=== PATIENT | female | born 1955 | race Caucasian/White ===

== ENCOUNTER → 2017-04-21 | Outpatient (CLI) | payer BC ==
--- NOTE | 2017-04-21 17:15 | PCVCIMAG ---
APPROVED REPORT Exam: Stress Echocardiogram Indication: bradycardia,cva Patient Location: Echo lab Stress Nurse: Katy Mina RN Status: routine HR: 62 bpm Rhythm: NSR Medical History Medical History: Hyperlipidemia,cva Cardiac Risk Factors: Hyperlipidemia, FHX of CAD Exercise History: Indeterminate Procedure The patient underwent an Exercise Stress Test using the Matt Protocol. Blood pressure, heart rate, and EKG were monitored. An Echocardiogram was performed by coordinate measuring machine technician in four stages in quad fashion. At peak stress, four selected images were obtained and placed side by side with resting images for comparison. Stress Test Details Stress Test: Exercise stress testing was performed using a Matt protocol. HR Resting HR: 62 bpmMax Heart Rate (APMHR): 158 bpm Max HR Achieved: 160 bpmTarget HR (85% APMHR): 134 bpm % of APMHR: 101 Recovery HR: 95 bpm HR response to stress: Normal HR response to stress BP Resting BP: 144/90 mmHg Max BP: 180/78 mmHg Recovery BP: 140/70 mmHg ECG Resting ECG: Sinus Rhythm Stress ECG: Sinus Rhythm ST Change: Normal Maximum ST Deviation: 0.55 mm Arrhythmia: Rare PACs Recovery ECG: Sinus Rhythm Recovery ST Change: Non-ischemic Recovery Arrhythmia: None Clinical Reason for Termination: Maximal effort Stress Symptoms: none Exercise duration: 8 min sec Highest Stage Achieved: Stage 3: 3.4 mph at 14% grade. Exercise capacity: 10.1 METs Overall Exercise Capacity for Age: Average Angina Score: None Stress ECG Conclusion Patel Treadmill Score is 5.3 which is Low risk. Pre-Stress Echo The resting Echocardiogram showed normal left ventricular contractility with an estimated Ejection Fraction of about 55-60%. Normal wall motion in all segments on baseline images. Post-Stress Echo The stress Echocardiogram showed normal left ventricular contractility with an estimated Ejection Fraction of about 65-70%. Normal augmentation of wall motion in all segments on post stress images. Clinical No clinical or ECG evidence for ischemia. Conclusion Clinical Response: Non-ischemic Exercise Capacity: Average Stress ECG Response: Non-ischemic Stress Echo Images: Non-ischemic Normal stress echocardiogram with maximal exercise stress. No clinical, EKG or echocardiographic evidence for ischemia. Echo contrast used for optimal endocardial definition. <Conclusion> Normal stress echocardiogram with maximal exercise stress. No clinical, EKG or echocardiographic evidence for ischemia. Echo contrast used for optimal endocardial definition.
--- NOTE | 2017-04-21 17:16 | PCVCIMAG ---
APPROVED REPORT Study performed: 04/21/2017 12:33:06 EXAM: Comprehensive 2D, Doppler, and color-flow Echocardiogram Patient Location: Echo lab Status: routine Other Information Study Quality: Excellent Indications CVA/TIA Bradycardia hypercholesteremia 2D Dimensions LVEF(%): 72.01 (>50%) IVSd: 8.53 (7-11mm)LVOT Diam: 19.75 (18-24mm) LVDd: 44.15 mm PWd: 7.07 (7-11mm) LVDs: 26.06 (25-40mm) Left Atrium: 36.17 (27-40mm) Aortic Root: 23.59 mm LV Single Plane 4CH: 75.17 % LV Single Plane 2CH: 62.17 %Ledesma's LVEF: 68.67 % Biplane EF: 69.5 % Volumes Left Atrial Volume (Systole) Single Plane 4CH: 57.05 mLSingle Plane 2CH: 41.04 mL LA ESV Index: 26.70 mL/m2 Aortic Valve AoV Peak Yobani.: 1.40 m/s AO Peak Gr.: 7.85 mmHgLVOT Max P.80 mmHg LVOT Max V: 0.83 m/s MADDI Vmax: 1.81 cm2 Mitral Valve E/A Ratio: 1.0 MV Decel. Time: 131.68 ms MV E Max Yobani.: 0.84 m/s MV A Yobani.: 0.82 m/s IVRT: 103.81 ms TDI E/Lateral E': 7.64E/Medial E': 9.33 Medial E' Yobani.: 0.09 m/s Lateral E' Yobani.: 0.11 m/s Pulmonary Valve PV Peak Yobani.: 0.79 m/sPV Peak Gr.: 2.51 mmHg Pulmonary Vein P Vein S: 0.51 m/sP Vein A: 0.31 m/s P Vein D: 0.34 m/sP Vein A Dur.: 93.4 msec P Vein S/D Ratio: 1.50 Tricuspid Valve TR Peak Yobani.: 2.33 m/s TR Peak Gr.: 21.68 mmHg TV Vmax: 0.69 m/sPA Pressure: 29.00 mmHg Left Ventricle The left ventricle is normal size. There is normal LV segmental wall motion. There is normal left ventricular wall thickness. Left ventricular systolic function is normal. The left ventricular ejection fraction is within the normal range. LVEF is 65-70%. The left ventricular diastolic function is normal. Right Ventricle The right ventricle is normal size. The right ventricular systolic function is normal. Atria The left atrium size is normal. The right atrium size is normal. Aortic Valve The aortic valve is normal in structure. No aortic regurgitation is present. There is no aortic valvular stenosis. Mitral Valve The mitral valve is normal in structure. There is no mitral valve regurgitation noted. No evidence of mitral valve stenosis. Tricuspid Valve The tricuspid valve is normal in structure. There is trivial tricuspid valve regurgitation noted with a PA pressure of 29mmHg.. Pulmonic Valve The pulmonary valve is normal in structure. There is trivial pulmonic valvular regurgitation. Great Vessels The aortic root is normal in size. The ascending aorta is normal in size. IVC is normal in size and collapses with >50% inspiration Pericardium There is no pericardial effusion. There is no pleural effusion. <Conclusion> The left ventricle is normal size. There is normal left ventricular wall thickness. Left ventricular systolic function is normal. The left ventricular ejection fraction is within the normal range. The left ventricular diastolic function is normal. The left atrium size is normal. The right atrium size is normal. No aortic regurgitation is present. There is no mitral valve regurgitation noted. There is no pericardial effusion. There is trivial tricuspid valve regurgitation noted with a PA pressure of 29mmHg..
== END | disposition home or self-care (01) ==
LOC: PCVCIMAG 12:24
PROVIDERS: ATTEND Internal Medicine Cardiovascular Disease
DX: G45.9 Transient cerebral ischemic attack, unspecified (principal); I07.1 Rheumatic tricuspid insufficiency; I37.1 Nonrheumatic pulmonary valve insufficiency; E78.5 Hyperlipidemia, unspecified; R42 Dizziness and giddiness; I95.9 Hypotension, unspecified; E78.01 Familial hypercholesterolemia; J45.909 Unspecified asthma, uncomplicated; Z82.49 Family history of ischemic heart disease and other diseases of the circulatory system; Z79.82 Long term (current) use of aspirin
CPT/HCPCS: 80061; 93306; 93351

== ENCOUNTER → 2018-09-03 | Outpatient (CLI) | payer BC ==
--- NOTE | 2018-09-05 07:58 | PCVCIMAG ---
APPROVED REPORT Study performed: 09/03/2018 14:45:13 Exam: Stress Echocardiogram Indication: Dyspnea, fam hx CAD, HTN Patient Location: Echo lab Stress Nurse: Katy Mina RN Status: routine Ht: 5 ft 7 in HR: 73 bpm BP: 128/78 mmHg Rhythm: NSR Procedure The patient underwent an Exercise Stress Test using the Matt Protocol. Blood pressure, heart rate, and EKG were monitored. An Echocardiogram was performed by imaging technician in four stages in quad fashion. At peak stress, four selected images were obtained and placed side by side with resting images for comparison. Stress Test Details Stress Test: Exercise stress testing was performed using a Matt protocol. HR Resting HR: 73 bpmMax Heart Rate (APMHR): 157 bpm Max HR Achieved: 153 bpmTarget HR (85% APMHR): 133 bpm % of APMHR: 97 Recovery HR: 100 bpm HR response to stress: Normal HR response to stress BP Resting BP: 128/78 mmHg Max BP: 150/70 mmHg Recovery BP: 140/74 mmHg BP response to stress: Normal blood pressure response to stress. ECG Resting ECG: Sinus Rhythm Stress ECG: Sinus Rhythm ST Change: Normal Arrhythmia: None Recovery ECG: Sinus Rhythm Recovery ST Change: Normal Recovery Arrhythmia: None Clinical Reason for Termination: Maximal effort Stress Symptoms: Dyspnea Exercise duration: 7 min 32 sec Highest Stage Achieved: Stage 3: 3.4 mph at 14% grade. Exercise capacity: 10.1 METs Overall Exercise Capacity for Age: Normal Scale: Sedentary Angina Score: None Pre-Stress Echo The resting Echocardiogram showed normal left ventricular contractility with an estimated Ejection Fraction of about >55%. Normal wall motion in all segments on baseline images. Post-Stress Echo The stress Echocardiogram showed normal left ventricular contractility with an estimated Ejection Fraction of about 65%. Normal augmentation of wall motion in all segments on post stress images. Clinical No clinical or ECG evidence for ischemia. Conclusion Clinical Response: Non-ischemic Exercise Capacity: Average Stress ECG Response: Non-ischemic Stress Echo Images: Non-ischemic The left ventricle is normal in size and wall thickness in both the rest and stress images. Other Information Study Quality: Adequate <Conclusion> The left ventricle is normal in size and wall thickness in both the rest and stress images.
== END | disposition home or self-care (01) ==
LOC: PCVCIMAG 15:11
PROVIDERS: ATTEND Internal Medicine Cardiovascular Disease
DX: R06.09 Other forms of dyspnea (principal); R53.83 Other fatigue; Z82.49 Family history of ischemic heart disease and other diseases of the circulatory system
CPT/HCPCS: 93325; 93351